=== PATIENT | male | born 1945 | race Hispanic/Latino ===

== ENCOUNTER 2016-11-06 17:24 | Inpatient (IN) | payer MEDICARE, OTHER ==
[2016-11-01 13:18] VITALS: BMI 19.8
--- NOTE | 2016-11-06 22:02 | CP.PCM.HP ---
History of Present Illness - History of Present Illness History of Present Illness: PCP: Agus Gorman MD Chief complaint: Multiple falls/Subdural Hematoma HPI: The hx was obtained from the patient and the medical records. He is a 71 years old male who has been having multiple falls at home, admitted to the [facility] on 11/01/16 after multiple falls. He was diagnosed with left Subdural Hematoma, treated and transferred to the [facility] Acute Rehabilitation Unit for continued treatment and Physical therapy. 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 Progressive Supranuclear Palsy , and chronic back pain. At present he refers pain to the right lower right lower back,ribs and right thigh, no headaches, dizziness, fever, nausea, vomits. No dysuria nor urinary frequency. PMH: HTN; CVA with dragging of the right foot, Depression and Anxiety; BPH; Progressive Supranuclear palsy;Spinal stenosis with chronic back pain; Cataracts PSH: Right Leg varicose veins stripping; Cholecystecomy 2009; Left inguinal hernia repair; Right inguinal hernia repair; SH: Former Smoker Quit > 20 years;Alcohol socially; former Marijuana usage; Retired 5 years; live with family; Uses a walker and a cane to ambulate FH: stated, Unknown family history Allergies: NKDA Medication: Keppra for Seizure prophylaxis Present on Admission - Present on Admission Any Indicators Present on Admission: No History of DVT/PE: No History of Uncontrolled Diabetes: No Urinary Catheter: No Decubitus Ulcer Present: No Review of Systems - Constitutional Constitutional: absent: Anorexia, Chills, Fever, Headache - EENT Eyes: Requires Corrective Lenses. absent: Diplopia, Floaters Ears: absent: Decreased Hearing, Ear Discharge, Tinnitus Nose/Mouth/Throat: absent: Epistaxis, Nasal Congestion, Sinus Pressure - Cardiovascular Cardiovascular: Chest Pain. absent: Dyspnea, Edema Additional comments: Pain to the right lower rib cage - Respiratory Respiratory: absent: Cough, Dyspnea, Wheezing, Stridor - Gastrointestinal Gastrointestinal: Diarrhea. absent: Abdominal Pain, Constipation, Nausea, Vomiting - Genitourinary Genitourinary: absent: Dysuria, Flank Pain, Hematuria - Musculoskeletal Musculoskeletal: Back Pain Additional comments: Pain to the back of the [place], lower back pain. pain to the right thigh. - Integumentary Integumentary: absent: Pruritus, Rash, Skin Ulcer, Sores, Striae, Swelling Additional comments: Bruises to the right hand, both knees, below the left eye, - Neurological Neurological: Abnormal Gait, Disequilibrium. absent: Confusion, Convulsions, Dizziness, Headaches - Psychiatric Psychiatric: Anxiety, Depression. absent: Confusion Additional comments: Poor memory - Endocrine Endocrine: absent: Palpitations, Polydipsia, Polyphagia, Polyuria - Hematologic/Lymphatic Hematologic: absent: Easy Bleeding, Easy Bruising Past Patient History - Past Medical History & Family History Past Medical History?: Yes - Past Social History Smoking Status: Former Smoker Chewing Tobacco Use: No Cigar Use: No Alcohol: Occasional Drugs: Cannabis Home Situation {Lives}: With Family - CARDIAC Hx Hypertension: Yes - PULMONARY Hx Respiratory Disorders: No - NEUROLOGICAL HX Cerebrovascular Accident: Yes (drags right foot) Other/Comment: Subdural hematoma. Progressive Supranuclear Palsy - HEENT Hx HEENT Problems: No - RENAL Hx Chronic Kidney Disease: No - ENDOCRINE/METABOLIC Hx Endocrine Disorders: No - HEMATOLOGICAL/ONCOLOGICAL Hx Blood Transfusions: No Hx Blood Transfusion Reaction: No - INTEGUMENTARY Other/Comment: scrape under left forearm, multiple r knee abrasions - MUSCULOSKELETAL/RHEUMATOLOGICAL Hx Arthritis: Yes - GASTROINTESTINAL Hx Gastrointestinal Disorders: No - GENITOURINARY/GYNECOLOGICAL Hx Prostate Problems: Yes (BPH) - PSYCHIATRIC Hx Anxiety: Yes Hx Depression: Yes Hx Emotional Abuse: No Hx Physical Abuse: No Hx Substance Use: Yes (marijuana stopped can't remember when) - SURGICAL HISTORY Hx Cholecystectomy: Yes Hx Herniorrhaphy: Yes (left and right Inguinal repair) Hx Orthopedic Surgery: Yes (Lumbar spine surgery) Hx Vascular Surgery: Yes (Right varicose vein stripp;ing) - ANESTHESIA Hx Anesthesia: Yes Hx Anesthesia Reactions: No Hx Malignant Hyperthermia: No Meds Allergies/Adverse Reactions: Allergies Allergy/AdvReac Type Severity Reaction Status Date / Time No Known Allergies Allergy Verified 11/06/16 19:54 Physical Exam - Constitutional Appears: No Acute Distress - Head Exam Head Exam: ATRAUMATIC, NORMAL INSPECTION, NORMOCEPHALIC - Eye Exam Eye Exam: EOMI, Normal appearance Pupil Exam: NORMAL ACCOMODATION, PERRL - ENT Exam ENT Exam: Mucous Membranes Moist, Normal Exam - Neck Exam Neck exam: Positive for: Normal Inspection. Negative for: Lymphadenopathy, Tenderness - Respiratory Exam Respiratory Exam: Clear to Auscultation Bilateral. absent: Rales, Rhonchi, Wheezes - Cardiovascular Exam Cardiovascular Exam: REGULAR RHYTHM, RRR, +S1, +S2. absent: Gallop, JVD - GI/Abdominal Exam GI & Abdominal Exam: Normal Bowel Sounds, Soft. absent: Mass, Organomegaly, Tenderness - Rectal Exam Rectal Exam: Deferred - Extremities Exam Extremities exam: Positive for: normal inspection. Negative for: joint swelling , pedal edema - Back Exam Back exam: NORMAL INSPECTION. absent: CVA tenderness (L), CVA tenderness (R) - Neurological Exam Neurological exam: Alert, CN II-XII Intact, Oriented x3 Additional comments: Poor memory - Psychiatric Exam Psychiatric exam: Normal Affect, Normal Mood - Skin Skin Exam: Cyanosis, Dry, Intact, Normal Color, Warm Additional comments: Healing bruise at both knees, below the left eye, to the right palm. Results - Labs Labs: 11/04/16 Hb 11.9 Ht 35 WBC 6.2 Na+ 142 K+ 4.0 BUN 13 Creatinine 0.9 - Imaging and Cardiology X Ray rib Status: Report reviewed by me Additional comment: Acute mildly displaced fractures in right Posteriolateral 9th, 10th, and 11th ribs CT scan - head Status: Report reviewed by me Additional comment: 11/01/16 Small somewhat thin but extensive left sided subdural hematoma which extends nearly from the skull base to the vertex. There is mild mass effect along the left inferior mid frontal rgion and with mild compressive effects on subjacent sulci. Repeat CT head Additional comment: Slight decrease in size , left sided subdural hematoma. Interval development of a small right frontal hypodense extra-axial collection that could represent subdural hygroma admixed wihthsmall amount of hemorrhage. Assessment & Plan - Assessment and Plan (Free Text) Assessment: #.Subdural Hematoma #. HTN #. progressive Supranuclear Palsy #. Spinal Stenosis Plan: 71 years old male who has been having multiple falls at home, admitted to the [facility] on 11/01/16 after multiple falls. He was diagnosed with left Subdural Hematoma, treated and transferred to the [place] #.Subdural Hematoma -Consult Neurology Dr Gaffney - Consult Dr Lal Heater Installer - [facility] for Seizure prevention - PT/OT - follow Lags CBC/ PTT/INR and Electrolytes #. HTN - Losartan - Follow BP #. progressive Supranuclear Palsy -Neurology on consult - Carbidopa/levodopa - PT/OT #. Spinal Stenosis - pain management with Tramadol/ Zanaflex - OT/PT #. Sisplaced Fx of right 9th, 10 th and 11th ribs - pain management #. Stress ulcer Prophylaxis with Pantoprazole #. DVT prophylaxis with SCD Code Status: Full - Date & Time Date: 11/06/16 Time: 22:02
[2016-11-07] MEDS: Pantoprazole 40 mg EC Tab PO SCH (06:12)
[2016-11-07 06:35] LABS: BASO # 0.1 K/uL (0.0-0.2); BASO % 1.4 % (0.0-2.0); EOS # 0.2 K/uL (0.0-0.7); EOS % 2.8 % (0.0-4.0); LYMPH # 1.1 K/uL (1.0-4.3); LYMPH % 19.1 % (20.0-40.0); MEAN CELL VOLUME 84.8 fl (80.0-94.0); MEAN CORPUSCULAR HEMOGLOBIN 28.9 pg (27.0-31.0); MEAN PLATELET VOLUME 8.3 fl (7.2-11.7); MONO # 0.7 K/uL (0.0-0.8); MONO % 11.4 % (0.0-10.0); NEUT # 3.8 K/uL (1.8-7.0); NEUT % 65.3 % (50.0-75.0); NRBC % 0.2 % (0.0-0.0); RED CELL DISTRIBUTION WIDTH 15.2 % (11.5-14.5); WHITE BLOOD COUNT 5.8 K/uL (4.8-10.8)
[2016-11-07 06:43] LABS: BLOOD UREA NITROGEN 14 mg/dl (9-20); CARBON DIOXIDE 26 mmol/L (22-30); CHLORIDE 103 mmol/L (98-107); GFR AFRICAN-AMERICAN > 60; GLUCOSE,RANDOM 93 mg/dL (75-110); PARTIAL THROMBOPLASTIN TIME 25.9 Seconds (25.6-37.1); POTASSIUM 3.9 MMOL/L (3.6-5.0); SODIUM 143 mmol/l (132-148)
[2016-11-07] MEDS: Carbidopa/Levodopa 25/250 PO SCH ×3 (09:04→17:18)
--- NOTE | 2016-11-07 10:06 | CP.PCM.PN ---
Subjective - Date & Time of Evaluation Date of Evaluation: 11/07/13 Time of Evaluation: 11:00 - Subjective Subjective: Patient seen and examined bedside. Feeling well. With episode of orthostatic hypotension today. Participated with PT . Hemodynamically stable, afebrile Objective - Vital Signs/Intake and Output Vital Signs (last 24 hours): Temp Pulse Resp BP Pulse Ox 97.3 F L 75 20 122/60 100 11/07/16 07:57 11/07/16 09:05 11/07/16 07:57 11/07/16 09:05 11/07/16 07:57 - Medications Medications: Current Medications Acetaminophen (Tylenol 325mg Tab) 650 mg PO Q6H PRN PRN Reason: Fever >100.4 F Carbidopa/Levodopa (Sinemet) 1 tab PO TID [facility] Last Admin: 11/07/16 09:04 Dose: 1 tab Escitalopram Oxalate (Lexapro) 10 mg PO DAILY [facility] Last Admin: 11/07/16 09:05 Dose: 10 mg Gabapentin (Neurontin) 300 mg PO BID [facility] Last Admin: 11/07/16 09:05 Dose: 300 mg Levetiracetam (Keppra) 250 mg PO Q12 [facility] Last Admin: 11/07/16 09:04 Dose: 250 mg Lorazepam (Ativan) 0.5 mg PO TID PRN PRN Reason: Anxiety Losartan Potassium (Cozaar) 100 mg PO DAILY [facility] Last Admin: 11/07/16 09:05 Dose: 100 mg Pantoprazole Sodium (Protonix Ec Tab) 40 mg PO 0600 [facility] Last Admin: 11/07/16 06:12 Dose: 40 mg Tamsulosin HCl (Flomax) 0.4 mg PO DAILY [facility] Last Admin: 11/07/16 09:05 Dose: 0.4 mg Temazepam (Restoril) 15 mg PO HS PRN PRN Reason: Sleep Tizanidine HCl (Zanaflex) 0.5 mg PO BID [facility] Tramadol HCl (Ultram) 50 mg PO BID PRN PRN Reason: Pain, severe (8-10) Last Admin: 11/07/16 09:07 Dose: 50 mg - Labs Labs: 11/07/16 05:30 11/07/16 05:30 PT 12.0 Seconds (9.8-13.1) 11/07/16 05:30 INR 1.2 (0.9-1.2) 11/07/16 05:30 APTT 25.9 Seconds (25.6-37.1) 11/07/16 05:30 - Constitutional Appears: Well, Non-toxic, No Acute Distress - Head Exam Head Exam: ATRAUMATIC, NORMAL INSPECTION, NORMOCEPHALIC - Eye Exam Eye Exam: EOMI, Normal appearance, PERRL Pupil Exam: NORMAL ACCOMODATION - ENT Exam ENT Exam: Mucous Membranes Moist, Normal Exam - Neck Exam Neck Exam: Full ROM, Normal Inspection - Respiratory Exam Respiratory Exam: Clear to Ausculation Bilateral, NORMAL BREATHING PATTERN. absent: Rales, Rhonchi, Wheezes - Cardiovascular Exam Cardiovascular Exam: REGULAR RHYTHM, RRR, +S1, +S2. absent: JVD - GI/Abdominal Exam GI & Abdominal Exam: Soft, Normal Bowel Sounds. absent: Distended, Guarding, Rebound - Rectal Exam Rectal Exam: Deferred - Extremities Exam Extremities Exam: Full ROM, Normal Capillary Refill, Normal Inspection. absent : Calf Tenderness, Pedal Edema - Back Exam Back Exam: NORMAL INSPECTION - Neurological Exam Neurological Exam: Alert, Awake, CN II-XII Intact - Psychiatric Exam Psychiatric exam: Normal Affect - Skin Skin Exam: Dry, Intact, Normal Color, Warm Assessment and Plan - Assessment and Plan (Free Text) Assessment: 71 years old male with PMH HTN ,multiple falls at home, admitted to the [facility] on 11/01/16 after a fall. He was diagnosed with left Subdural Hematoma, treated and transferred to the [place] . At present in acute rehab for physical therapy 1. Gait instability Most likely secondary to progressive supranuclear palsy, spinal stenosis and subdural hematoma admitted to acute rehab for physical therapy 2.Subdural Hematoma Consult Neurology Dr Gaffney Consult Dr Lal Mattress Inspector [employer] for Seizure prevention continue PT/OT 3. HTN on Losartan promote good po hydration since patient had orthostatic BP episode this AM 4. Progressive Supranuclear Palsy Neurology on consult Carbidopa/levodopa continue PT/OT 5.Spinal Stenosis pain management with Tramadol/ Zanaflex OT/PT 6.Displaced Fx of right 9th, 10 th and 11th ribs pain management 7.Stress ulcer Prophylaxis Pantoprazole 8. DVT prophylaxis SCD
--- NOTE | 2016-11-07 11:55 | PSY.TMCNF ---
Nursing - Vital Signs Vital Signs (Last 8 hours): Vital Signs 11/07/16 11/07/16 07:57 09:05 Temperature 97.3 F L Pulse Rate 75 75 Respiratory 20 Rate Blood Pressure 122/66 122/60 O2 Sat by Pulse 100 Oximetry Pain: 6 - Medications/Other Issues Comment: To follow as per nutrition protocol - Bladder Management Bladder Pattern: Normal Voiding Method: Toilet - Bowel Management Bowel Pattern: Normal Physical Therapy - Pain Management Techniques: Medication, Position Change - Provider Therapist: M License Number: [id number] Occupational Therapy - Arousal/Attention/Orientation Patient Orientation: Person, Place, Time - Pain Alleviating Techniques: Medication, Position Change - Provider Therapist: N Nutrition - Current Diet Current Diet/ Supplement/ Feedings: Heart healthy - Appetite Percent Meal Consumed: 50-74% - Assessment/Goals/Time Frame Assessment/Goals/Time Frame: To follow as per nutrition protocol - Provider Provider: Karol Laird RD Case Management - Discharge Plan Discharge Plan: Home with significant other/family Rehabilitation Plan - Discharge Plan Discharge to: Subacute
--- NOTE | 2016-11-07 15:03 | CON ---
DATE: 11/07/2016 CHIEF COMPLAINT: Multiple falls, status post acute on chronic left subdural. HISTORY OF PRESENT ILLNESS: This is a 71-year-old man who is well-known to me from previous hospitalization with past medical history of chronic back pain, anxiety, hypertension, history of mechanical fall, history of progressive supranuclear palsy associated with falls, had an unwitnessed fall at home and was brought to the [facility] and found to have acute on chronic subdural hematoma and mild subarachnoid hemorrhage and subdural hygromas, which has decreased in size on repeat CAT scan on 11/05/2016. He is in [facility] for physical and occupational therapy and for his underlying deconditioned state. He had some intermittent bouts of delirium in [facility], but he is now doing well. He is following commands. He is currently going through speech therapy with a therapist. He is on Ativan p.r.n. for anxiety. PAST MEDICAL HISTORY: History of progressive supranuclear palsy diagnosed in 12/2015, history of prior CVA, anxiety, depression, BPH, and hypertension. ALLERGIES: NO KNOWN DRUG ALLERGIES. MEDICATIONS: Reviewed by nurse per reconciliation sheet. FAMILY HISTORY: Noncontributory. SOCIAL HISTORY: No illicit drug use, smoking, or ETOH abuse REVIEW OF SYSTEMS: A 14-point review of systems negative except in the HPI. PHYSICAL EXAMINATION: GENERAL: The patient is sitting up in bed, in no acute distress. VITAL SIGNS: Temperature 97.3, pulse rate , blood pressure 122/66, respiratory rate 20, and oxygen saturation 100% by room air. HEENT: Head is atraumatic and normocephalic. PERRLA. Extraocular muscles are intact. NECK: Supple. No JVD. No adenopathy noted. LUNGS: Clear to auscultation. No adventitious sounds. HEART: S1 and S2. Normal rate and rhythm. No murmurs, rubs, or gallops. ABDOMEN: Soft, nontender, and nondistended. Bowel sounds are present. EXTREMITIES: No clubbing. No cyanosis. Peripheral pulses 2+ bilaterally. NEUROLOGIC: The patient is alert and oriented to person, place, month, and year. Recall after 5 minutes is 0/3. Poor attention span. Poor thought process. Speech is hypophonic. He has limited upper gaze. Motor exam: Slight increased tone throughout and mild cogwheel rigidity at the wrist. She has had forward flexion of the spine. Sensory exam: Light touch, pinprick, proprioception, and vibration is intact. DTRs are 2+ throughout. Coordination of [id number] intact. Gait is deferred for now. LABORATORY DATA: Sodium is 143, potassium 3.9, chloride 102, carbon dioxide 26, BUN of 14, creatinine 1, and random glucose 93. ASSESSMENT: This is a 71-year-old man with past medical history of chronic back pain, hypertension, history of progressive supranuclear palsy associated with multiple falls, he was found to have unwitnessed fall at home and was brought to the [facility] on 11/01/2016, where he had acute on chronic left subdural with some underlying subdural hygromas with repeat CAT scan on showed decreased in size of his left subdural. He has left subdural hemorrhage secondary to his underlying repeated falls given his history of progressive supranuclear palsy causing superimposed underlying deconditioning state. He had intermittent bouts of delirium, which is now stable. PLAN: 1. At this time, we recommend to keep his blood pressure between 120-130, avoid hypertensive fluctuations. 2. If he gets agitated, he could get Seroquel 25 p.o. at bedtime, if needed, otherwise for now he can hold off. 3. Gabapentin 300 mg p.o. b.i.d. 4. Continue with Sinemet on his current dose. 5. Continue low dose Keppra 250 p.o. b.i.d. for seizure prophylaxis. 5. Continue with PT/OT, acute rehab. Thank you for this consult. Grant Gaffney MD
[2016-11-08] MEDS: Pantoprazole 40 mg EC Tab PO SCH (05:54)
[2016-11-08] MEDS: Carbidopa/Levodopa 25/250 PO SCH ×3 (08:29→17:28)
--- NOTE | 2016-11-08 09:35 | CP.PCM.CON ---
History of Present Illness - History of Present Illness History of Present Illness: 71 year old male admitted for acute rehab with diagnosis of subdural Hge from [facility] Review of Systems - Musculoskeletal Musculoskeletal: Abnormal Gait, Muscle Weakness - Neurological Neurological: Abnormal Gait, Weakness Past Patient History - Past Medical History & Family History Past Medical History?: Yes - Past Social History Smoking Status: Former Smoker Chewing Tobacco Use: No Cigar Use: No Alcohol: Occasional Drugs: Cannabis Home Situation {Lives}: With Family - CARDIAC Hx Hypertension: Yes - PULMONARY Hx Respiratory Disorders: No - NEUROLOGICAL HX Cerebrovascular Accident: Yes (drags right foot) Other/Comment: Subdural hematoma. Progressive Supranuclear Palsy - HEENT Hx HEENT Problems: No - RENAL Hx Chronic Kidney Disease: No - ENDOCRINE/METABOLIC Hx Endocrine Disorders: No - HEMATOLOGICAL/ONCOLOGICAL Hx Blood Transfusions: No Hx Blood Transfusion Reaction: No - INTEGUMENTARY Other/Comment: scrape under left forearm, multiple r knee abrasions - MUSCULOSKELETAL/RHEUMATOLOGICAL Hx Arthritis: Yes - GASTROINTESTINAL Hx Gastrointestinal Disorders: No - GENITOURINARY/GYNECOLOGICAL Hx Prostate Problems: Yes (BPH) - PSYCHIATRIC Hx Anxiety: Yes Hx Depression: Yes Hx Emotional Abuse: No Hx Physical Abuse: No Hx Substance Use: Yes (marijuana stopped can't remember when) - SURGICAL HISTORY Hx Cholecystectomy: Yes Hx Herniorrhaphy: Yes (left and right Inguinal repair) Hx Orthopedic Surgery: Yes (Lumbar spine surgery) Hx Vascular Surgery: Yes (Right varicose vein stripp;ing) - ANESTHESIA Hx Anesthesia: Yes Hx Anesthesia Reactions: No Hx Malignant Hyperthermia: No Meds Allergies/Adverse Reactions: Allergies Allergy/AdvReac Type Severity Reaction Status Date / Time No Known Allergies Allergy Verified 11/06/16 19:54 - Medications Medications: Current Medications Acetaminophen (Tylenol 325mg Tab) 650 mg PO Q6H PRN PRN Reason: Fever >100.4 F Acetaminophen (Tylenol 325mg Tab) 650 mg PO Q6 PRN PRN Reason: Pain, Mild (1-3) Carbidopa/Levodopa (Sinemet) 1 tab PO TID [facility] Last Admin: 11/08/16 08:29 Dose: 1 tab Escitalopram Oxalate (Lexapro) 10 mg PO DAILY [facility] Last Admin: 11/08/16 08:29 Dose: 10 mg Gabapentin (Neurontin) 300 mg PO BID [facility] Last Admin: 11/08/16 08:29 Dose: 300 mg Levetiracetam (Keppra) 250 mg PO Q12 [facility] Last Admin: 11/08/16 08:29 Dose: 250 mg Lorazepam (Ativan) 0.5 mg PO TID PRN PRN Reason: Anxiety Losartan Potassium (Cozaar) 100 mg PO DAILY [facility] Last Admin: 11/08/16 08:29 Dose: 100 mg Pantoprazole Sodium (Protonix Ec Tab) 40 mg PO 0600 [facility] Last Admin: 11/08/16 05:54 Dose: 40 mg Tamsulosin HCl (Flomax) 0.4 mg PO DAILY [facility] Last Admin: 11/08/16 08:29 Dose: 0.4 mg Temazepam (Restoril) 15 mg PO HS PRN PRN Reason: Sleep Tizanidine HCl (Zanaflex) 2 mg PO BID [facility] Last Admin: 11/08/16 08:29 Dose: 2 mg Tramadol HCl (Ultram) 50 mg PO BID PRN PRN Reason: Other Last Admin: 11/08/16 08:35 Dose: 50 mg Physical Exam - Head Exam Head Exam: ATRAUMATIC, NORMAL INSPECTION, NORMOCEPHALIC - Eye Exam Eye Exam: EOMI, Normal appearance Pupil Exam: NORMAL ACCOMODATION, PERRL - ENT Exam ENT Exam: Mucous Membranes Moist, Normal Exam - Neck Exam Neck exam: Positive for: Normal Inspection - Respiratory Exam Respiratory Exam: NORMAL BREATHING PATTERN - Cardiovascular Exam Cardiovascular Exam: REGULAR RHYTHM - GI/Abdominal Exam GI & Abdominal Exam: Normal Bowel Sounds - Rectal Exam Rectal Exam: NORMAL INSPECTION - Exam External exam: NORMAL EXTERNAL EXAM - Extremities Exam Extremities exam: Positive for: normal inspection Additional comments: muscle strenght 3/5 - Back Exam Back exam: NORMAL INSPECTION - Neurological Exam Neurological exam: Alert, CN II-XII Intact - Psychiatric Exam Psychiatric exam: Normal Affect, Normal Mood - Skin Skin Exam: Normal Color, Warm Results - Vital Signs Recent Vital Signs: Last Vital Signs Temp 97.8 F 11/08/16 08:44 Pulse 94 H 11/08/16 08:44 Resp 20 11/08/16 08:44 BP 123/66 11/08/16 08:44 Pulse Ox 97 11/08/16 08:44 - Labs Result Diagrams: 11/07/16 05:30 11/07/16 05:30 Assessment & Plan (1) Abdominal pain Status: Acute (2) Nasal fracture Status: Acute (3) Rib fracture Status: Acute (4) Spinal stenosis Status: Acute (5) Subdural hematoma Assessment and Plan: plan for physical, occupational, rec therapy for range of motion, strenghtening transfers and gait training. At present with problems of balance, strenght, falling and safety, to write for overall plan of care. pain management for rib fractures Status: Acute (6) Hypertension Status: Chronic (7) Progressive supranuclear palsy Status: Chronic
--- NOTE | 2016-11-08 17:54 | CP.PCM.PN ---
Subjective - Date & Time of Evaluation Date of Evaluation: 11/08/16 Time of Evaluation: 21:00 - Subjective Subjective: no acute complaints , generalized weakness Objective - Vital Signs/Intake and Output Vital Signs (last 24 hours): Temp Pulse Resp BP Pulse Ox 97.8 F 96 H 20 123/66 97 11/08/16 08:44 11/08/16 11:03 11/08/16 08:44 11/08/16 08:44 11/08/16 08:44 - Medications Medications: Current Medications Acetaminophen (Tylenol 325mg Tab) 650 mg PO Q6H PRN PRN Reason: Fever >100.4 F Acetaminophen (Tylenol 325mg Tab) 650 mg PO Q6 PRN PRN Reason: Pain, Mild (1-3) Carbidopa/Levodopa (Sinemet) 1 tab PO TID [facility] Last Admin: 11/08/16 17:28 Dose: 1 tab Escitalopram Oxalate (Lexapro) 10 mg PO DAILY [facility] Last Admin: 11/08/16 08:29 Dose: 10 mg Gabapentin (Neurontin) 300 mg PO BID [facility] Last Admin: 11/08/16 17:28 Dose: 300 mg Levetiracetam (Keppra) 250 mg PO Q12 [facility] Last Admin: 11/08/16 08:29 Dose: 250 mg Lorazepam (Ativan) 0.5 mg PO TID PRN PRN Reason: Anxiety Losartan Potassium (Cozaar) 100 mg PO DAILY [facility] Last Admin: 11/08/16 08:29 Dose: 100 mg Pantoprazole Sodium (Protonix Ec Tab) 40 mg PO 0600 [facility] Last Admin: 11/08/16 05:54 Dose: 40 mg Tamsulosin HCl (Flomax) 0.4 mg PO DAILY [facility] Last Admin: 11/08/16 08:29 Dose: 0.4 mg Temazepam (Restoril) 15 mg PO HS PRN PRN Reason: Sleep Tizanidine HCl (Zanaflex) 2 mg PO BID [facility] Last Admin: 11/08/16 17:28 Dose: 2 mg Tramadol HCl (Ultram) 50 mg PO BID PRN PRN Reason: Other Last Admin: 11/08/16 08:35 Dose: 50 mg - Labs Labs: 11/07/16 05:30 11/07/16 05:30 PT 12.0 Seconds (9.8-13.1) 11/07/16 05:30 INR 1.2 (0.9-1.2) 11/07/16 05:30 APTT 25.9 Seconds (25.6-37.1) 11/07/16 05:30 - Head Exam Head Exam: ATRAUMATIC, NORMAL INSPECTION, NORMOCEPHALIC - Eye Exam Eye Exam: EOMI, Normal appearance Pupil Exam: NORMAL ACCOMODATION, PERRL - ENT Exam ENT Exam: Mucous Membranes Moist, Normal Exam - Neck Exam Neck Exam: Normal Inspection - Respiratory Exam Respiratory Exam: NORMAL BREATHING PATTERN - Cardiovascular Exam Cardiovascular Exam: Clicks - GI/Abdominal Exam GI & Abdominal Exam: Normal Bowel Sounds - Rectal Exam Rectal Exam: NORMAL INSPECTION - Exam External exam: NORMAL EXTERNAL EXAM - Back Exam Back Exam: NORMAL INSPECTION - Neurological Exam Neurological Exam: Alert, Awake Neuro motor strength exam: Left Upper Extremity: 3, Right Upper Extremity: 3, Left Lower Extremity: 3, Right Lower Extremity: 3 - Psychiatric Exam Psychiatric exam: Normal Affect, Normal Mood - Skin Skin Exam: Normal Color Assessment and Plan (1) Abdominal pain Status: Acute (2) Nasal fracture Status: Acute (3) Rib fracture Status: Acute (4) Spinal stenosis Status: Acute (5) Subdural hematoma Assessment & Plan: plan for physical, occupational, rec therapy for range of motion, work on balance, gait training Status: Acute (6) Hypertension Status: Chronic (7) Progressive supranuclear palsy Status: Chronic Physiatry Overall Plan of Care - Overall Plan of Care Estimated Length of Stay in Weeks: 3 Rehab Impairment: Mobility, Gait, Balance, Coordination Etiologic Diagnosis: Traumatic Brain Injury Rehab/Medical Prognosis: Fair - Anticipated Interventions Physical Therapy:: Yes Occupational Therapy:: Yes Speech Therapy:: Yes Recreational Therapy:: Yes Other Anticipated Intervention:: Yes - Therapy Goals Bed Mobility: Independent Ambulation: Supervision Functional Positional Changes:: Independent Comments: goals may chnage depending on return of muscle function, work on balance - Functional Outcomes Functional Outcomes: fair - Discharge Plan Identification of Barriers to Discharge: Home Situation Discharge Destination: Home
[2016-11-09] MEDS: Pantoprazole 40 mg EC Tab PO SCH (05:47)
[2016-11-09] MEDS: Carbidopa/Levodopa 25/250 PO SCH ×3 (08:42→17:04)
--- NOTE | 2016-11-09 09:51 | CP.PCM.PN ---
Subjective - Date & Time of Evaluation Date of Evaluation: 11/09/16 Time of Evaluation: 10:00 - Subjective Subjective: Patient seen and examined bedside. Feeling well. With episode of orthostatic hypotension today. Participated with PT . afebrile Denies any pain or discomfort Objective - Vital Signs/Intake and Output Vital Signs (last 24 hours): Temp Pulse Resp BP Pulse Ox 98.0 F 76 20 120/67 98 11/09/16 08:44 11/09/16 08:47 11/09/16 08:44 11/09/16 08:47 11/09/16 08:44 - Medications Medications: Current Medications Acetaminophen (Tylenol 325mg Tab) 650 mg PO Q6H PRN PRN Reason: Fever >100.4 F Acetaminophen (Tylenol 325mg Tab) 650 mg PO Q6 PRN PRN Reason: Pain, Mild (1-3) Carbidopa/Levodopa (Sinemet) 1 tab PO TID [facility] Last Admin: 11/09/16 08:42 Dose: 1 tab Docusate Sodium (Colace) 100 mg PO BID [facility] Last Admin: 11/09/16 08:41 Dose: 100 mg Escitalopram Oxalate (Lexapro) 10 mg PO DAILY [facility] Last Admin: 11/09/16 08:47 Dose: 10 mg Gabapentin (Neurontin) 300 mg PO BID [facility] Last Admin: 11/09/16 08:45 Dose: 300 mg Lactulose (Enulose) 20 gm PO DAILY PRN PRN Reason: Constipation Last Admin: 11/08/16 20:17 Dose: 20 gm Levetiracetam (Keppra) 250 mg PO Q12 [facility] Last Admin: 11/09/16 08:45 Dose: 250 mg Lorazepam (Ativan) 0.5 mg PO TID PRN PRN Reason: Anxiety Losartan Potassium (Cozaar) 100 mg PO DAILY [facility] Last Admin: 11/09/16 08:47 Dose: 100 mg Pantoprazole Sodium (Protonix Ec Tab) 40 mg PO 0600 [facility] Last Admin: 11/09/16 05:47 Dose: 40 mg Tamsulosin HCl (Flomax) 0.4 mg PO DAILY [facility] Last Admin: 11/09/16 08:45 Dose: 0.4 mg Temazepam (Restoril) 15 mg PO HS PRN PRN Reason: Sleep Tizanidine HCl (Zanaflex) 2 mg PO BID [facility] Last Admin: 11/08/16 17:28 Dose: 2 mg Tramadol HCl (Ultram) 50 mg PO BID PRN PRN Reason: Other Last Admin: 11/08/16 08:35 Dose: 50 mg - Labs Labs: 11/07/16 05:30 11/07/16 05:30 PT 12.0 Seconds (9.8-13.1) 11/07/16 05:30 INR 1.2 (0.9-1.2) 11/07/16 05:30 APTT 25.9 Seconds (25.6-37.1) 11/07/16 05:30 - Constitutional Appears: Non-toxic, No Acute Distress - Head Exam Head Exam: ATRAUMATIC, NORMAL INSPECTION, NORMOCEPHALIC - Eye Exam Eye Exam: EOMI, Normal appearance, PERRL Pupil Exam: NORMAL ACCOMODATION - ENT Exam ENT Exam: Mucous Membranes Moist, Normal Exam - Neck Exam Neck Exam: Full ROM, Normal Inspection - Respiratory Exam Respiratory Exam: Clear to Ausculation Bilateral, NORMAL BREATHING PATTERN. absent: Rales, Rhonchi, Wheezes - Cardiovascular Exam Cardiovascular Exam: REGULAR RHYTHM, RRR, +S1, +S2. absent: JVD - GI/Abdominal Exam GI & Abdominal Exam: Soft, Normal Bowel Sounds. absent: Distended, Guarding, Tenderness, Rebound - Rectal Exam Rectal Exam: Deferred - Extremities Exam Extremities Exam: Full ROM, Normal Capillary Refill, Normal Inspection. absent : Calf Tenderness, Pedal Edema - Back Exam Back Exam: NORMAL INSPECTION - Neurological Exam Neurological Exam: Alert, Awake, CN II-XII Intact Additional comments: bilateral ankle clonus gait instabilirty right foot droop - Psychiatric Exam Psychiatric exam: Normal Affect - Skin Skin Exam: Dry, Intact, Normal Color, Warm Assessment and Plan - Assessment and Plan (Free Text) Assessment: 71 years old male with PMH HTN ,multiple falls at home, admitted to the [facility] on 11/01/16 after a fall. He was diagnosed with left Subdural Hematoma, treated and transferred to the [place] . At present in acute rehab for physical therapy 1. Gait instability Most likely secondary to progressive supranuclear palsy, spinal stenosis and subdural hematoma Continue physical therapy 2.Subdural Hematoma Consult Neurology Dr Gaffney Consult Dr Lal Progressive [facility] Registered Nurse Ly for Seizure prevention continue PT/OT 3. HTN with episode of orthostatic hypotension. Will lower losartan dose from 100 to 50 mg po daily promote good po hydration 4. Progressive Supranuclear Palsy Neurology on consult Carbidopa/levodopa continue PT/OT 5.Spinal Stenosis pain management with Tramadol/ Zanaflex OT/PT 6.Displaced Fx of right 9th, 10 th and 11th ribs pain management 7.Stress ulcer Prophylaxis Pantoprazole 8. DVT prophylaxis SCD
--- NOTE | 2016-11-09 16:31 | PN ---
PHYSIATRY PROGRESS NOTE SUBJECTIVE: The patient is feeling fine, complains of generalized weakness. No other acute complaints at present. PHYSICAL EXAMINATION VITAL SIGNS: Stable. NECK: Supple. CHEST: Symmetrical. HEART: Sounds S1 and S2. ABDOMEN: Benign. EXTREMITIES: No clubbing, cyanosis or edema. The patient with problems of generalized weakness. Muscle strength is fair. No problems with balance and coordination. IMPRESSION: Subdural hemorrhage, supranuclear palsy, hypertension, spinal stenosis, status post recent rib fracture. PLAN: Physical therapy, occupational therapy, recreational therapy for range of motion, strengthening, transfers, ambulation, gait training. Isma Coronel MD
[2016-11-10] MEDS: Pantoprazole 40 mg EC Tab PO SCH (08:16)
[2016-11-10] MEDS: Carbidopa/Levodopa 25/250 PO SCH ×3 (08:16→17:41)
[2016-11-11] MEDS: Pantoprazole 40 mg EC Tab PO SCH (06:40)
[2016-11-11] MEDS: Carbidopa/Levodopa 25/250 PO SCH ×3 (08:25→16:25)
--- NOTE | 2016-11-11 17:46 | CP.PCM.PN ---
Subjective - Date & Time of Evaluation Date of Evaluation: 11/10/16 Time of Evaluation: 11:00 - Subjective Subjective: no acute complaints except just weakness Objective - Vital Signs/Intake and Output Vital Signs (last 24 hours): Temp Pulse Resp BP Pulse Ox 98.1 F 75 19 126/71 99 11/11/16 08:13 11/11/16 08:26 11/11/16 08:13 11/11/16 08:26 11/11/16 08:13 - Medications Medications: Current Medications Acetaminophen (Tylenol 325mg Tab) 650 mg PO Q6H PRN PRN Reason: Fever >100.4 F Acetaminophen (Tylenol 325mg Tab) 650 mg PO Q6 PRN PRN Reason: Pain, Mild (1-3) Carbidopa/Levodopa (Sinemet) 1 tab PO TID [facility] Last Admin: 11/11/16 16:25 Dose: 1 tab Clonazepam (Klonopin) 1 mg PO HS PRN PRN Reason: Anxiety Last Admin: 11/10/16 21:51 Dose: 1 mg Docusate Sodium (Colace) 100 mg PO BID [facility] Last Admin: 11/11/16 16:25 Dose: 100 mg Escitalopram Oxalate (Lexapro) 10 mg PO DAILY [facility] Last Admin: 11/11/16 08:25 Dose: 10 mg Gabapentin (Neurontin) 300 mg PO BID [facility] Last Admin: 11/11/16 16:26 Dose: 300 mg Lactulose (Enulose) 20 gm PO DAILY PRN PRN Reason: Constipation Last Admin: 11/09/16 17:03 Dose: 20 gm Levetiracetam (Keppra) 250 mg PO Q12 [facility] Last Admin: 11/11/16 08:25 Dose: 250 mg Losartan Potassium (Cozaar) 50 mg PO DAILY [facility] Last Admin: 11/11/16 08:26 Dose: 50 mg Pantoprazole Sodium (Protonix Ec Tab) 40 mg PO 0600 [facility] Last Admin: 11/11/16 06:40 Dose: 40 mg Tamsulosin HCl (Flomax) 0.4 mg PO DAILY [facility] Last Admin: 11/09/16 08:45 Dose: 0.4 mg Tizanidine HCl (Zanaflex) 2 mg PO BID [facility] Last Admin: 11/11/16 16:27 Dose: 2 mg Tramadol HCl (Ultram) 50 mg PO BID PRN PRN Reason: .pain 4-10 Last Admin: 11/11/16 13:32 Dose: 50 mg - Labs Labs: 11/07/16 05:30 11/07/16 05:30 PT 12.0 Seconds (9.8-13.1) 11/07/16 05:30 INR 1.2 (0.9-1.2) 11/07/16 05:30 APTT 25.9 Seconds (25.6-37.1) 11/07/16 05:30 - Head Exam Head Exam: ATRAUMATIC, NORMAL INSPECTION, NORMOCEPHALIC - Eye Exam Eye Exam: EOMI, Normal appearance Pupil Exam: NORMAL ACCOMODATION, PERRL - ENT Exam ENT Exam: Mucous Membranes Moist - Neck Exam Neck Exam: Normal Inspection - Respiratory Exam Respiratory Exam: Clear to Ausculation Bilateral, NORMAL BREATHING PATTERN - Cardiovascular Exam Cardiovascular Exam: REGULAR RHYTHM - GI/Abdominal Exam GI & Abdominal Exam: Normal Bowel Sounds - Rectal Exam Rectal Exam: NORMAL INSPECTION - Exam External exam: NORMAL EXTERNAL EXAM - Extremities Exam Extremities Exam: Normal Capillary Refill, Normal Inspection - Back Exam Back Exam: NORMAL INSPECTION - Neurological Exam Neurological Exam: Alert, Awake Neuro motor strength exam: Left Upper Extremity: 3, Right Upper Extremity: 3, Left Lower Extremity: 3, Right Lower Extremity: 3 - Psychiatric Exam Psychiatric exam: Normal Affect, Normal Mood - Skin Skin Exam: Dry, Normal Color Assessment and Plan (1) Abdominal pain Status: Acute (2) Nasal fracture Status: Acute (3) Rib fracture Status: Acute (4) Spinal stenosis Status: Acute (5) Subdural hematoma Assessment & Plan: to continue with physical, and occupational therapy to improve strength , balance, coordination and gait Status: Acute (6) Hypertension Status: Chronic (7) Progressive supranuclear palsy Status: Chronic
[2016-11-12] MEDS: Pantoprazole 40 mg EC Tab PO SCH (06:31)
[2016-11-12] MEDS: Carbidopa/Levodopa 25/250 PO SCH ×3 (08:58→17:21)
--- NOTE | 2016-11-12 15:52 | CP.PCM.PN ---
Subjective - Date & Time of Evaluation Date of Evaluation: 11/12/16 Time of Evaluation: 15:30 - Subjective Subjective: Pt seen and examined. Complained of pain on upper and lower back. Objective - Vital Signs/Intake and Output Vital Signs (last 24 hours): Temp Pulse Resp BP Pulse Ox 97.8 F 107 H 20 123/73 99 11/12/16 08:00 11/12/16 10:24 11/12/16 08:00 11/12/16 08:58 11/12/16 08:00 - Medications Medications: Current Medications Acetaminophen (Tylenol 325mg Tab) 650 mg PO Q6H PRN PRN Reason: Fever >100.4 F Acetaminophen (Tylenol 325mg Tab) 650 mg PO Q6 PRN PRN Reason: Pain, Mild (1-3) Carbidopa/Levodopa (Sinemet) 1 tab PO TID [facility] Last Admin: 11/12/16 13:04 Dose: 1 tab Clonazepam (Klonopin) 1 mg PO HS PRN PRN Reason: Anxiety Last Admin: 11/11/16 21:57 Dose: 1 mg Docusate Sodium (Colace) 100 mg PO BID [facility] Last Admin: 11/12/16 08:57 Dose: 100 mg Escitalopram Oxalate (Lexapro) 10 mg PO DAILY [facility] Last Admin: 11/12/16 08:59 Dose: 10 mg Gabapentin (Neurontin) 300 mg PO BID [facility] Last Admin: 11/12/16 08:59 Dose: 300 mg Lactulose (Enulose) 20 gm PO DAILY PRN PRN Reason: Constipation Last Admin: 11/09/16 17:03 Dose: 20 gm Levetiracetam (Keppra) 250 mg PO Q12 [facility] Last Admin: 11/12/16 08:58 Dose: 250 mg Losartan Potassium (Cozaar) 50 mg PO DAILY [facility] Last Admin: 11/12/16 08:58 Dose: 50 mg Pantoprazole Sodium (Protonix Ec Tab) 40 mg PO 0600 [facility] Last Admin: 11/12/16 06:31 Dose: 40 mg Tamsulosin HCl (Flomax) 0.4 mg PO DAILY [facility] Last Admin: 11/09/16 08:45 Dose: 0.4 mg Tizanidine HCl (Zanaflex) 2 mg PO BID [facility] Last Admin: 11/12/16 08:59 Dose: 2 mg Tramadol HCl (Ultram) 50 mg PO BID PRN PRN Reason: .pain 4-10 Last Admin: 11/12/16 09:52 Dose: 50 mg - Labs Labs: 11/07/16 05:30 11/07/16 05:30 PT 12.0 Seconds (9.8-13.1) 11/07/16 05:30 INR 1.2 (0.9-1.2) 11/07/16 05:30 APTT 25.9 Seconds (25.6-37.1) 11/07/16 05:30 - Constitutional Appears: No Acute Distress - Head Exam Head Exam: ATRAUMATIC - Eye Exam Eye Exam: absent: Scleral icterus - ENT Exam ENT Exam: Mucous Membranes Moist - Neck Exam Neck Exam: absent: Meningismus - Respiratory Exam Respiratory Exam: absent: Rhonchi, Wheezes, Respiratory Distress - Cardiovascular Exam Cardiovascular Exam: REGULAR RHYTHM, +S1, +S2 - GI/Abdominal Exam GI & Abdominal Exam: Soft. absent: Tenderness - Rectal Exam Rectal Exam: Deferred - Neurological Exam Neurological Exam: Alert, Oriented x3 - Psychiatric Exam Psychiatric exam: Normal Affect - Skin Skin Exam: Dry, Intact Assessment and Plan - Assessment and Plan (Free Text) Assessment: 71 years old male with history of HTN, Multiple Falls at home, Spinal Stenosis, previous CVA and Progressive Supranuclear Palsy admitted at [facility] [place] on after another fall and was found to have left Subdural Hematoma. He was managed and then transferred to [facility] for therapy in Acute Rehab. 1. Gait instability secondary to progressive supranuclear palsy, spinal stenosis and subdural hematoma continue PT/OT 2.Subdural Hematoma on Keppra fall precaution 3. HTN BP stable continue Losartan 4. Progressive Supranuclear Palsy on Carbidopa/Levodopa continue PT/OT 5.Spinal Stenosis complained of upper and lower back pain continue Tramadol and Zanaflex OT/PT 6.Displaced Fx of right 9th, 10 th and 11th ribs pain management 7.Stress ulcer Prophylaxis on Pantoprazole 8. DVT prophylaxis SCD avoid anticoagulant because of recent subdural hematoma
[2016-11-13] MEDS: Pantoprazole 40 mg EC Tab PO SCH (07:12)
[2016-11-13] MEDS: Carbidopa/Levodopa 25/250 PO SCH ×3 (08:28→17:40)
--- NOTE | 2016-11-13 18:23 | PN ---
PHYSIATRY PROGRESS NOTE DATE: SUBJECTIVE: A 71-year-old male, in no acute distress, generalized weakness. PHYSICAL EXAMINATION VITAL SIGNS: Stable. NECK: Supple. CHEST: Symmetrical. HEART: Sounds S1 and S2. ABDOMEN: Benign. EXTREMITIES: No clubbing, cyanosis or edema. IMPRESSION: Subdural hemorrhage, supranuclear palsy, hypertension, and spinal stenosis. PLAN: Physical and occupational therapy for range of motion, strengthening, transfers, ambulation, gait training. Continue to monitor balance, skin, bowel. Team conference for tomorrow. Isma Coronel MD
[2016-11-14] MEDS: Pantoprazole 40 mg EC Tab PO SCH (06:41)
[2016-11-14] MEDS: Carbidopa/Levodopa 25/250 PO SCH ×3 (08:48→17:54)
--- NOTE | 2016-11-14 12:20 | PSY.TMCNF ---
Nursing - Vital Signs Vital Signs (Last 8 hours): Vital Signs 11/14/16 11/14/16 08:48 09:00 Temperature 97.0 F L Pulse Rate 69 Respiratory 20 Rate Blood Pressure 124/65 124/65 Pain: 8 - Precautions: Precautions: Fall Prevention, Seizure - Medications/Other Issues Comment: FLOMAX ON HOLD DUE TO ORTHOSTATIC EPISODES DURING THERAPY. PT COMPLAINED OF DIFFICULTY URINATING THIS MORNING. - Consults Comment: DR. HOLMAN-YASH, - Toileting Toileting: Supervision - Bladder Management Bladder Pattern: Normal Voiding Method: Toilet, Urinal Bladder Management: Supervision Frequency of Accidents: 0 - Bowel Management Bowel Pattern: Normal Bowel Management: Supervision Frequency of Accidents: 0 - Transfers Transfers: Supervision - ADL's ADL's: Supervision - Pain Management Comments: ULTRAM 50MG BID PRN - Patient/Family Teaching Comments: SAFETY PRECAUTIONS - Goals/Time Frame Comments: PER MULTIDISCIPLINARY CARE PLAN AND GOALS - Provider Provider: THEA HAWKINSN RN CRRN Physical Therapy - Bed Mobility Bed Mobility: Verbal Cues, Contact Guard - Transfers Wheelchair to Mat: Verbal Cues, Contact Guard, Minimal Assistance Sit to Stand: Verbal Cues, Contact Guard, Minimal Assistance Comment: cueing for safety with hand placement - Ambulation Level of Assistance: Verbal Cues, Contact Guard, Minimal Assistance Distance (ft.): 200 Assistive Devices: Rolling Walker Orthoses: n/a Comment: -ambulation with R foot drag and upward sand rightward gaze with RW. - impaired turning with reduced attention and stepping of feet outside walker. - use of increase speed and audible timing with beat to provide external cueing and gait training - Stair Negotiation Stairs: Level of Assistance: Minimal Assistance, Moderate Assistance Stairs: Assistive Devices: Left Handrail Comment: 1 flight of 8 inch steps with min to mod A. -patient requires constant CG for safety with maximal cues for improved placement of feet on steps to prevent posterior loss of balance on ascent and anterior loss of balance on descent - Standing Balance Static Stand: Minimal Assistance Dynamic Stand: Moderate Assistance, Maximal Assistance Comment: lacks reactive balance reactions, especially in the posterior and rightwards direction - Pain Management Techniques: Medication, Position Change, Distraction, Inactivity - Insight/Carryover Insight/Carryover: Fair - Patient/Family Education Comment: Recovery after a neurological injury, AE/DME, safety and fall prevention, ADL and ADL transfer compensatory strategies, pt requires continued reinforcement - Assessment/Plan Assessment: Pt requires continued skilled OT services 5-6x/week to address impaired dynamic sitting and standing balance, decreased endurance, impaired strength and fine motor coordinaiton in order to increase pt's independence with ADLs and functional mobility to return to home with his . - Goals Timeframe: 3 weeks Goals: MOD I feeding (met). MOD I grooming. MOD I toileting. MOD I toilet txfer. S bathing. S tub txfer. MOD I UE dressing. MOD I LE dressing - Provider Therapist: Elis Stewart PT, DPT License Number: [id number] Occupational Therapy - Arousal/Attention/Orientation Patient Orientation: Person, Place, Time, Appropriate to Age, Appropriate to Situation - ADL/IADL Self Feeding: Modified Independent Grooming: Verbal Cues, Set-up Help, Minimal Assistance Bathing-Upper Extremity: Supervision, Verbal Cues, Set-up Help Bathing-Lower Extremity: Moderate Assistance Dressing-Upper Extremity: Minimal Assistance Dressing-Lower Extremity: Minimal Assistance - Sitting Balance Static Sitting: Supervision Dynamic Sitting: Minimal Assistance - Transfers Wheelchair to Bed Transfers: Verbal Cues, Set-up Help, Minimal Assistance Toilet Transfers: Verbal Cues, Set-up Help, Minimal Assistance Tub Transfers: Verbal Cues, Set-up Help, Minimal Assistance - Wheelchair Management Level of Assistance: Supervision Distance (ft.): 100 - Upper Extremity Status Right Upper Extremity Comment: ROM WFL, impaired shoulder strength, impaired fine motor coordination Left Upper Extremity Comment: ROM WFL, impaired shoulder strength, impaired fine motor coordination - Pain Alleviating Techniques: Medication, Position Change, Distraction, Inactivity - Insight/Carryover Insight/Carryover: Fair - Patient/Family Education Comment: Recovery after a neurological injury, AE/DME, safety and fall prevention, ADL and ADL transfer compensatory strategies, pt requires continued reinforcement - Assessment/Plan Assessment: Pt requires continued skilled OT services 5-6x/week to address impaired dynamic sitting and standing balance, decreased endurance, impaired strength and fine motor coordinaiton in order to increase pt's independence with ADLs and functional mobility to return to home with his . - Goals Timeframe: 3 weeks Goals: MOD I feeding (met). MOD I grooming. MOD I toileting. MOD I toilet txfer. S bathing. S tub txfer. MOD I UE dressing. MOD I LE dressing - Provider Therapist: Desirae Horan License Number: [id number] Speech Therapy - Consult Information Patient on Program: Yes Medical Diagnosis: SDH, PSP Treatment Diagnosis: - mild-moderate dysarthria/voice disorder. - mild cognitive deficits - Assessment Expressive Language Impairment: Mild Memory Impairment: Mild Speech/Articulation Impairment: Moderate Comment: mild-moderate speech/voice deficits - Plan Assessment: Pt requires continued skilled OT services 5-6x/week to address impaired dynamic sitting and standing balance, decreased endurance, impaired strength and fine motor coordinaiton in order to increase pt's independence with ADLs and functional mobility to return to home with his . - Provider Therapist: Loretta Alonzo License Number: [id number] Recreational Therapy - Participation Participation: Participates in Individual and/or Group Sessions - Attendance Attendance: 3-5 times per week - Activities Leisure Activities: Television - Socialization Level of Socialization: Initiates/interacts freely with care givers and peer - Diversional Time Diversional Time: enjoys listening to music - Assessment Assessment/Plan: Pt requires continued skilled OT services 5-6x/week to address impaired dynamic sitting and standing balance, decreased endurance, impaired strength and fine motor coordinaiton in order to increase pt's independence with ADLs and functional mobility to return to home with his . - Provider Therapist: Holley Us, DOPEMAN #[id number] Nutrition - Current Diet Current Diet/ Supplement/ Feedings: Heart healthy: 2 gram Na diet - Appetite Percent Meal Consumed: 75-100% - Comments Comments: SAFETY PRECAUTIONS - Assessment/Goals/Time Frame Assessment/Goals/Time Frame: FLOMAX ON HOLD DUE TO ORTHOSTATIC EPISODES DURING THERAPY. PT COMPLAINED OF DIFFICULTY URINATING THIS MORNING. - Provider Provider: Karol Laird RD Case Management - Discharge Plan Discharge Plan: Home with significant other/family Rehabilitation Plan - Treatment Plan Treatment Plan: Physical Therapy, Occupational Therapy, Speech, Dietary, Patient /Family Education - Recommendation Recommendation: Physical Therapy, Occupational Therapy (dc 9), Speech, Dietary, Patient/Family Education - Discharge Plan Discharge to: Home (Dc 9th)
--- NOTE | 2016-11-14 13:11 | CP.PCM.PN ---
Subjective - Date & Time of Evaluation Date of Evaluation: 11/14/16 Time of Evaluation: 13:09 - Subjective Subjective: pt seen and examined for supranuclear palsy doing well, tolerating PT VSS NAD no complaints Objective - Vital Signs/Intake and Output Vital Signs (last 24 hours): Temp Pulse Resp BP Pulse Ox 97.0 F L 69 20 124/65 97 11/14/16 09:00 11/14/16 09:00 11/14/16 09:00 11/14/16 09:00 11/13/16 20:23 - Medications Medications: Current Medications Acetaminophen (Tylenol 325mg Tab) 650 mg PO Q6H PRN PRN Reason: Fever >100.4 F Acetaminophen (Tylenol 325mg Tab) 650 mg PO Q6 PRN PRN Reason: Pain, Mild (1-3) Carbidopa/Levodopa (Sinemet) 1 tab PO TID [facility] Last Admin: 11/14/16 12:28 Dose: 1 tab Clonazepam (Klonopin) 1 mg PO HS PRN PRN Reason: Anxiety Last Admin: 11/12/16 22:12 Dose: 1 mg Docusate Sodium (Colace) 100 mg PO BID [facility] Last Admin: 11/14/16 08:49 Dose: 100 mg Escitalopram Oxalate (Lexapro) 10 mg PO DAILY [facility] Last Admin: 11/14/16 08:48 Dose: 10 mg Gabapentin (Neurontin) 300 mg PO BID [facility] Last Admin: 11/14/16 08:48 Dose: 300 mg Lactulose (Enulose) 20 gm PO DAILY PRN PRN Reason: Constipation Last Admin: 11/09/16 17:03 Dose: 20 gm Levetiracetam (Keppra) 250 mg PO Q12 [facility] Last Admin: 11/14/16 08:49 Dose: 250 mg Losartan Potassium (Cozaar) 50 mg PO DAILY [facility] Last Admin: 11/14/16 08:48 Dose: 50 mg Pantoprazole Sodium (Protonix Ec Tab) 40 mg PO 0600 [facility] Last Admin: 11/14/16 06:41 Dose: 40 mg Tamsulosin HCl (Flomax) 0.4 mg PO HS [facility] Tizanidine HCl (Zanaflex) 2 mg PO BID [facility] Last Admin: 11/14/16 08:48 Dose: 2 mg Tramadol HCl (Ultram) 50 mg PO BID PRN PRN Reason: .pain 4-10 Last Admin: 11/14/16 11:28 Dose: 50 mg - Labs Labs: 11/07/16 05:30 11/07/16 05:30 PT 12.0 Seconds (9.8-13.1) 11/07/16 05:30 INR 1.2 (0.9-1.2) 11/07/16 05:30 APTT 25.9 Seconds (25.6-37.1) 11/07/16 05:30 - Constitutional Appears: Non-toxic, No Acute Distress - Head Exam Head Exam: ATRAUMATIC, NORMOCEPHALIC - Eye Exam Eye Exam: Normal appearance. absent: Scleral icterus - ENT Exam ENT Exam: Mucous Membranes Moist, Normal Oropharynx - Neck Exam Neck Exam: Normal Inspection. absent: Lymphadenopathy - Respiratory Exam Respiratory Exam: Clear to Ausculation Bilateral, NORMAL BREATHING PATTERN - Cardiovascular Exam Cardiovascular Exam: RRR, +S1, +S2 - GI/Abdominal Exam GI & Abdominal Exam: Soft, Normal Bowel Sounds. absent: Organomegaly - Rectal Exam Rectal Exam: Deferred - Extremities Exam Extremities Exam: Normal Capillary Refill, Normal Inspection - Back Exam Back Exam: absent: CVA tenderness (L), CVA tenderness (R), rash noted - Neurological Exam Neurological Exam: Alert, Awake - Psychiatric Exam Psychiatric exam: Normal Affect, Normal Mood - Skin Skin Exam: Dry, Warm Assessment and Plan - Assessment and Plan (Free Text) Plan: 71 years old male with history of HTN, Multiple Falls at home, Spinal Stenosis, previous CVA and Progressive Supranuclear Palsy admitted at [facility] on after another fall and was found to have left Subdural Hematoma. He was managed and then transferred to [facility] for therapy in Acute Rehab. 1. Gait instability secondary to progressive supranuclear palsy, spinal stenosis and subdural hematoma continue PT/OT, tolerating well 2.Subdural Hematoma on Keppra fall precaution 3. HTN BP stable continue Losartan 4. Progressive Supranuclear Palsy on Carbidopa/Levodopa continue PT/OT 5.Spinal Stenosis complained of upper and lower back pain continue Tramadol and Zanaflex OT/PT 6.Displaced Fx of right 9th, 10 th and 11th ribs pain management 7.Stress ulcer Prophylaxis on Pantoprazole 8. DVT prophylaxis SCD avoid anticoagulant because of recent subdural hematoma
--- NOTE | 2016-11-14 19:41 | PN ---
PHYSIATRY PROGRESS NOTE SUBJECTIVE: Patient is feeling fine. No acute complaints at present. PHYSICAL EXAMINATION: VITAL SIGNS: Stable. NECK: Supple. CHEST: Symmetrical. HEART: Sounds S1 and S2. ABDOMEN: Benign. EXTREMITIES: No clubbing, cyanosis, or edema. Still problems with balance and gait. IMPRESSION: Subdural hemorrhage, supranuclear palsy, hypertension with spinal stenosis. PLAN: Continue with physical and occupational therapy. Discussed discharge planning with the . Recommend subacute and possible tank terminal gauger for the patient. Patient and family is agreeable, tentative discharge on 11/19/2016 to subacute rehab. Isma Coronel MD
[2016-11-15] MEDS: Pantoprazole 40 mg EC Tab PO SCH (05:36)
[2016-11-15] MEDS: Carbidopa/Levodopa 25/250 PO SCH ×3 (08:43→17:11)
[2016-11-16] MEDS: Pantoprazole 40 mg EC Tab PO SCH (06:17)
--- NOTE | 2016-11-16 08:55 | CP.PCM.PN ---
Subjective - Date & Time of Evaluation Date of Evaluation: 11/16/16 Time of Evaluation: 08:55 - Subjective Subjective: patient seen examined for supranuclear palsy doing well wtih therapy no complaints at this time HD stable NAD Objective - Vital Signs/Intake and Output Vital Signs (last 24 hours): Temp Pulse Resp BP Pulse Ox 97.9 F 81 20 124/74 100 11/16/16 07:45 11/16/16 07:45 11/16/16 07:45 11/16/16 07:45 11/16/16 07:45 GEN: WDWN, ALERT, COOPERATIVE HEENT: NCAT, PUPILS EQUAL HEART: +S1+S2, RRR NO MRG LUNG: CTAB, NO WRR ABD: SOFT BSX4 NT ND NO HSM NO MASS EXT: WARM, WELL PERFUSED NEURO: AA0X3, SENSATION EQUAL AND BILATERAL SKIN: WARM DRY PSYCH: NORMAL MOOD NORMAL AFFECT - Medications Medications: Current Medications Acetaminophen (Tylenol 325mg Tab) 650 mg PO Q6H PRN PRN Reason: Fever >100.4 F Acetaminophen (Tylenol 325mg Tab) 650 mg PO Q6 PRN PRN Reason: Pain, Mild (1-3) Carbidopa/Levodopa (Sinemet) 1 tab PO TID [facility] Last Admin: 11/15/16 17:11 Dose: 1 tab Clonazepam (Klonopin) 1 mg PO HS PRN PRN Reason: Anxiety Last Admin: 11/15/16 21:09 Dose: 1 mg Docusate Sodium (Colace) 100 mg PO BID [facility] Last Admin: 11/15/16 17:10 Dose: 100 mg Escitalopram Oxalate (Lexapro) 10 mg PO DAILY [facility] Last Admin: 11/15/16 08:43 Dose: 10 mg Gabapentin (Neurontin) 300 mg PO BID [facility] Last Admin: 11/15/16 17:10 Dose: 300 mg Lactulose (Enulose) 20 gm PO DAILY PRN PRN Reason: Constipation Last Admin: 11/09/16 17:03 Dose: 20 gm Levetiracetam (Keppra) 250 mg PO Q12 [facility] Last Admin: 11/15/16 21:09 Dose: 250 mg Losartan Potassium (Cozaar) 50 mg PO DAILY [facility] Last Admin: 11/15/16 08:43 Dose: 50 mg Pantoprazole Sodium (Protonix Ec Tab) 40 mg PO 0600 [facility] Last Admin: 10/06/17 06:17 Dose: 40 mg Tamsulosin HCl (Flomax) 0.4 mg PO HS [facility] Last Admin: 11/15/16 21:09 Dose: 0.4 mg Tizanidine HCl (Zanaflex) 2 mg PO BID [facility] Last Admin: 11/15/16 17:11 Dose: 2 mg Tramadol HCl (Ultram) 50 mg PO BID PRN PRN Reason: .pain 4-10 Last Admin: 11/15/16 10:04 Dose: 50 mg - Labs Labs: 11/07/16 05:30 11/07/16 05:30 PT 12.0 Seconds (9.8-13.1) 11/07/16 05:30 INR 1.2 (0.9-1.2) 11/07/16 05:30 APTT 25.9 Seconds (25.6-37.1) 11/07/16 05:30 Assessment and Plan - Assessment and Plan (Free Text) Plan: 71 years old male with history of HTN, Multiple Falls at home, Spinal Stenosis, previous CVA and Progressive Supranuclear Palsy admitted at [facility] on after another fall and was found to have left Subdural Hematoma. He was managed and then transferred to [facility] for therapy in Acute Rehab. 1. Gait instability secondary to progressive supranuclear palsy, spinal stenosis and subdural hematoma continue PT/OT, tolerating well 2.Subdural Hematoma on Keppra fall precaution 3. HTN BP stable continue Losartan 4. Progressive Supranuclear Palsy on Carbidopa/Levodopa continue PT/OT 5.Spinal Stenosis complained of upper and lower back pain continue Tramadol and Zanaflex OT/PT 6.Displaced Fx of right 9th, 10 th and 11th ribs pain management 7.Stress ulcer Prophylaxis on Pantoprazole 8. DVT prophylaxis SCD avoid anticoagulant because of recent subdural hematoma
[2016-11-16] MEDS: Carbidopa/Levodopa 25/250 PO SCH ×3 (09:02→17:07)
--- NOTE | 2016-11-16 14:17 | PN ---
PHYSIATRY PROGRESS NOTE SUBJECTIVE: The patient is doing fine. No acute complaints, nausea, vomiting, or diarrhea. PHYSICAL EXAMINATION VITAL SIGNS: Stable. NECK: Supple. CHEST: Symmetrical. HEART: Sounds S1 and S2. ABDOMEN: Benign. EXTREMITIES: No clubbing, cyanosis, or edema. IMPRESSION: Subdural hemorrhage, supranuclear palsy, hypertension, and spinal stenosis. PLAN: Physical and occupational therapy for range of motion, strengthening, transfers, ambulation, gait training. Continue to evaluate for equipment and do discharge planning. Isma Coronel MD
[2016-11-17] MEDS: Pantoprazole 40 mg EC Tab PO SCH (06:21)
[2016-11-17] MEDS: Carbidopa/Levodopa 25/250 PO SCH ×3 (08:45→17:39)
[2016-11-18] MEDS: Pantoprazole 40 mg EC Tab PO SCH (06:27)
[2016-11-18] MEDS: Carbidopa/Levodopa 25/250 PO SCH ×3 (08:21→17:39)
[2016-11-19 00:50] VITALS: O2SAT 99
[2016-11-19] MEDS: Pantoprazole 40 mg EC Tab PO SCH (06:33)
[2016-11-19 07:48] VITALS: BP 120/67; PULSE 73; RESP 18; TEMP 97
[2016-11-19] MEDS: Carbidopa/Levodopa 25/250 PO SCH ×2 (08:39→12:34)
--- NOTE | 2016-11-19 16:45 | CP.PCM.DIS ---
Provider - Provider Date of Admission: 11/06/16 19:56 Attending physician: Ari Welsh Primary care physician: Hola Gorman JD, MD Consults: Dr. Grant Gaffney, neurology Dr. Coronel, physiatry Case management Time Spent in preparation of Discharge (in minutes): 30 Hospital Course - Lab Results Lab Results: Most Recent Lab Values WBC 5.8 K/uL (4.8-10.8) 11/07/16 05:30 RBC 4.25 Mil/uL (4.40-5.90) L 11/07/16 05:30 Hgb 12.3 g/dL (12.0-18.0) 11/07/16 05:30 Hct 36.0 % (35.0-51.0) 11/07/16 05:30 MCV 84.8 fl (80.0-94.0) 11/07/16 05:30 MCH 28.9 pg (27.0-31.0) 11/07/16 05:30 MCHC 34.0 g/dL (33.0-37.0) 11/07/16 05:30 RDW 15.2 % (11.5-14.5) H 11/07/16 05:30 Plt Count 228 K/uL (130-400) 11/07/16 05:30 MPV 8.3 fl (7.2-11.7) 11/07/16 05:30 Neut % (Auto) 65.3 % (50.0-75.0) 11/07/16 05:30 Lymph % (Auto) 19.1 % (20.0-40.0) L 11/07/16 05:30 [place] % (Auto) 11.4 % (0.0-10.0) H 11/07/16 05:30 Eos % (Auto) 2.8 % (0.0-4.0) 11/07/16 05:30 Baso % (Auto) 1.4 % (0.0-2.0) 11/07/16 05:30 Neut # 3.8 K/uL (1.8-7.0) 11/07/16 05:30 Lymph # 1.1 K/uL (1.0-4.3) 11/07/16 05:30 [place] # 0.7 K/uL (0.0-0.8) 11/07/16 05:30 Eos # 0.2 K/uL (0.0-0.7) 11/07/16 05:30 Baso # 0.1 K/uL (0.0-0.2) 11/07/16 05:30 PT 12.0 Seconds (9.8-13.1) 11/07/16 05:30 INR 1.2 (0.9-1.2) 11/07/16 05:30 APTT 25.9 Seconds (25.6-37.1) 11/07/16 05:30 Sodium 143 mmol/l (132-148) 11/07/16 05:30 Potassium 3.9 MMOL/L (3.6-5.0) 11/07/16 05:30 Chloride 103 mmol/L (98-107) 11/07/16 05:30 Carbon Dioxide 26 mmol/L (22-30) 11/07/16 05:30 Anion Gap 18 (10-20) 11/07/16 05:30 BUN 14 mg/dl (9-20) 11/07/16 05:30 Creatinine 1.0 mg/dL (0.8-1.5) 11/07/16 05:30 Est GFR ( Amer) > 60 11/07/16 05:30 Est GFR (Non-Af Amer) > 60 11/07/16 05:30 Random Glucose 93 mg/dL (75-110) 11/07/16 05:30 Calcium 9.0 mg/dL (8.4-10.2) 11/07/16 05:30 - Hospital Course Hospital Course: This is a 71 year old male who has been having multiple falls at home, admitted to the [facility] on 11/01/16 after multiple falls. He was diagnosed with left Subdural Hematoma, treated and transferred to the [facility] Acute Rehabilitation Unit for continued treatment and Physical therapy on 11/06/16. He has hx of CVA with sequels of dragging the right foot, HTN, spinal stenosis, Displaced fx of right 9th, 10th, and 11th ribs, Progressive Supranuclear Palsy, and chronic back pain. On admission to rehab he complained pain to the right lower right lower back,ribs and right thigh. During his course in the acute rehab, he had ongoing physical therapy and occupational therapy. He remained hemodynamically stable during his time in rehab and his strength was regained somewhat. He is for discharge to subacute rehabiliation today. 1. Gait instability secondary to progressive supranuclear palsy, spinal stenosis and subdural hematoma continue PT/OT at [facility], tolerated well in acute rehab 2.Subdural Hematoma on Keppra OT/PT 3. HTN BP stable continue Losartan 4. Progressive Supranuclear Palsy on Carbidopa/Levodopa continue PT/OT 5.Spinal Stenosis complained of upper and lower back pain continue Tramadol and Zanaflex OT/PT 6.Displaced Fx of right 9th, 10 th and 11th ribs pain management 7.Stress ulcer Prophylaxis on Pantoprazole 8. DVT prophylaxis SCD avoid anticoagulant because of recent subdural hematoma Discharge Exam - Additional Findings Additional findings: PHYSICAL EXAMINATION: GENERAL: The patient is alert and oriented x 3, appears comfortable HEENT: Normocephalic, atraumatic. Extraocular movements intact. No sinus tenderness. Oropharynx clear. Mucous membranes are moist. no scleral icterus NECK: Supple without lymph node. CHEST: CTA bilaterally, no wheezes, rales, or rhonchi HEART: S1, S2. regular rate and rhythm ABDOMEN: Soft, nontender, nondistended No organomegaly. EXTREMITIES: No cyanosis, clubbing or edema. NEUROLOGIC: No focal deficit. No sensory deficit. PSYCHOSOCIAL: No signs of depression and is nonfocal. INTEGUMENT: Moist mucous membranes. Good skin turgor, intact. Discharge Plan - Follow Up Plan Condition: GOOD Disposition: REHAB FACILITY/REHAB UNIT Instructions: Hypertension (DC), Hypertension (GEN) Referrals: Hola Gorman JD, MD [Primary Care Provider] -
== END 2016-11-19 12:59 | DRG 945 ==
PROVIDERS: ADMIT Internal Medicine; ATTEND Internal Medicine
PROC: F08Z4FZ Home Management Treatment using Assistive, Adaptive, Supportive or Protective Equipment (ICD-10-PCS; principal; 2016-11-07)
PROC: F07M6FZ Therapeutic Exercise Treatment of Musculoskeletal System - Whole Body using Assistive, Adaptive, Supportive or Protective Equipment (ICD-10-PCS; 2016-11-07)
PROC: F07Z9FZ Gait Training/Functional Ambulation Treatment using Assistive, Adaptive, Supportive or Protective Equipment (ICD-10-PCS; 2016-11-07)
DX: S06.5X0D Traumatic subdural hemorrhage without loss of consciousness, subsequent encounter (principal); G23.1 Progressive supranuclear ophthalmoplegia [Steele-Richardson-Olszewski]; F41.9 Anxiety disorder, unspecified; W19.XXXD Unspecified fall, subsequent encounter; Y92.009 Unspecified place in unspecified non-institutional (private) residence as the place of occurrence of the external cause; G89.29 Other chronic pain; I10 Essential (primary) hypertension; I95.1 Orthostatic hypotension; M48.00 Spinal stenosis, site unspecified; N40.0 Benign prostatic hyperplasia without lower urinary tract symptoms; R29.6 Repeated falls; S02.2XXD Fracture of nasal bones, subsequent encounter for fracture with routine healing; S06.9X0D Unspecified intracranial injury without loss of consciousness, subsequent encounter; S22.39XD Fracture of one rib, unspecified side, subsequent encounter for fracture with routine healing; S80.211D Abrasion, right knee, subsequent encounter; Z79.899 Other long term (current) drug therapy; Z86.73 Personal history of transient ischemic attack (TIA), and cerebral infarction without residual deficits; Z87.891 Personal history of nicotine dependence; Z90.49 Acquired absence of other specified parts of digestive tract; F32.9 Major depressive disorder, single episode, unspecified; H26.9 Unspecified cataract; M19.90 Unspecified osteoarthritis, unspecified site; M54.5 Low back pain; R26.9 Unspecified abnormalities of gait and mobility